=== PATIENT | female | born 2000 | race Caucasian/White ===

== ENCOUNTER 2020-06-26 14:36 | Emergency (ER) | payer OTHER, SELFPAY ==
[2020-06-26 14:57] VITALS: BP 127/100; BP 132/103; PULSE 114; PULSE 133; RESP 22; TEMP 37; O2SAT 100; O2SAT 97; BMI 20.1
[2020-06-26 18:07] VITALS: BP 148/93; PULSE 126; RESP 18; TEMP 36.9; O2SAT 100
[2020-06-26 18:17] LABS: Basophils Percent Auto 0.3 % (0-2); Hematocrit 42.7 % (37-47); Hemoglobin 14.9 g/dl (12.0-16.0); Imm Gran Abs Auto 0.02 X10*3/uL (0.00-0.03); Imm Gran Pct Auto 0.3 % (0.0-0.4); Lymphocytes Absolute Auto 0.5 X10*3/uL (1.2-4.9); Lymphocytes Percent Auto 6.9 % (20-40); MANUAL DIFF FLAG SCAN; Mean Corpuscular HGB Conc 34.9 g/dl (31.0-35.0); Mean Corpuscular Hemoglobin 31.8 pg (27.0-33.0); Monocytes Absolute Auto 0.2 X10*3/uL (0.1-1.2); Monocytes Percent Auto 3.1 % (2-11); Neutrophils Absolute Auto 6.8 X10*3/uL (2.0-8.3); Neutrophils Percent Auto 89.4 % (45-73); Platelet Count 317 X10*3/uL (160-400); Red Blood Count 4.69 X10*6/uL (4.20-5.50); Red Cell Distribution Width 12.8 % (11.0-16.0); SCAN SMEAR FLAG 1; White Blood Count 7.5 X10*3/uL (4.8-10.8)
--- NOTE | 2020-06-26 18:33 | ED_ITS ---
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, this episode today seems to be similar to her as episodes in the past The pain is mostly in the upper abdomen, she cannot drink water without throwing it up, denies fever, denies chills denies burning with urination Related Data Allergies Allergy/AdvReac Type Severity Reaction Status Date / Time haloperidol [From Haldol] Allergy Unknown Verified 06/26/20 14:56 ondansetron [From Zofran] AdvReac Unknown Verified 06/26/20 14:56 Review of Systems Review of Systems Positive for abdominal pain nausea and vomiting negative for fever no chills no chest pain no shortness of breath no diarrhea no dysuria no burning with [place] or frequency of urination no blood in the stool no blood in the vomit no rash no weakness Yes all other systems are reviewed and are negative Physical Exam Vital Signs: Vital Signs: Last Vital Signs Temp 98.5 F 06/26/20 18:07 Pulse 111 H 06/26/20 20:51 Resp 16 06/26/20 20:51 BP 129/88 06/26/20 20:51 Pulse Ox 100 06/26/20 18:07 Body Mass Index 20.1 General appearance is uncomfortable The head is normocephalic atraumatic The pupils are anicteric, no pallor The neck is supple The chest is clear to auscultation bilaterally The heart no murmur auscultated The abdomen had diffuse mild tenderness without rebound or guarding no focal tenderness Extremities no edema, skin no rash Neuro no focal deficit Course Course Course Narrative: 21:30 repeat exam patient has vomited again despite red gland, she says she is allergic to both Zofran and Haldol Repeat abdominal exam remains unchanged with mild generalized tenderness in the abdomen Labs showed a bicarb of 15 and an anion gap of 22 test was negative Case was discussed with attending physician Dr. Mari who advised repeat a L of fluids, try Ativan and Compazine for the nausea, and case was signed out to Dr. Mari at this time and he will re-evaluate , continue care and dispo patient MDM - Abdominal Pain Lab Data Result diagrams: 06/26/20 17:49 06/26/20 17:49 Labs: Lab Results 06/26/20 06/26/20 06/26/20 Range/Units 17:49 17:49 19:57 WBC 7.5 (4.8-10.8) X10*3/uL RBC 4.69 (4.20-5.50) X10*6/uL Hgb 14.9 (12.0-16.0) g/dl Hct 42.7 (37-47) % MCV 91.0 (80-98) fL MCH 31.8 (27.0-33.0) pg MCHC 34.9 (31.0-35.0) g/dl RDW 12.8 (11.0-16.0) % Plt Count 317 (160-400) X10*3/uL MPV 9.0 L (9.4-12.3) fL Immature Gran % (Auto) 0.3 (0.0-0.4) % Neut % (Auto) 89.4 H (45-73) % Lymph % (Auto) 6.9 L (20-40) % [place] % (Auto) 3.1 (2-11) % Eos % (Auto) 0.0 (0-4) % Baso % (Auto) 0.3 (0-2) % Lymph # (Auto) 0.5 L (1.2-4.9) X10*3/uL [place] # (Auto) 0.2 (0.1-1.2) X10*3/uL Eos # (Auto) 0.0 (0.0-0.4) X10*3/uL Baso # (Auto) 0.0 (0.0-0.2) X10*3/uL Abs Immat Gran (auto) 0.02 (0.00-0.03) X10*3/uL Absolute Neuts (auto) 6.8 (2.0-8.3) X10*3/uL Absolute Nucleated RBC 0.000 (0.0-0.012) X10*3/uL Nucleated RBC % (auto) 0.0 (0.0-0.2) /100WBC Smear Tech's Comments VERIFIED Sodium 135 (135-145) mmol/L Potassium 4.4 (3.3-5.1) mmol/L Chloride 102 (96-108) mmol/L Carbon Dioxide 15 L (22-29) mmol/L Anion Gap 22 H (12-20) BUN 16 (9-16) mg/dL Creatinine 0.80 (0.5-1.4) mg/dL Estim Creat Clear Calc 81.2 Estimated GFR > 60 Random Glucose 105 (60-115) mg/dL Calcium 10.2 (8.4-10.2) mg/dL Total Bilirubin 1.0 (0.0-1.0) mg/dL Direct Bilirubin 0.4 (0.0-0.5) mg/dL AST 23 (5-31) U/L ALT 18 (0-31) U/L Alkaline Phosphatase 61 (39-117) U/L Total Protein 8.6 H (6.5-8.0) g/dL Albumin 5.3 H (3.5-5.0) g/dL Lipase 9 (8-78) U/L Beta HCG, Quant < 2 mIU/mL COVID-19 (DEBRA) Negative (Negative) COVID-19 Clin Com See Note PMFSH Past Medical History [facility] Narrative: Episodes of vomiting and stomach pain which have brought her to [facility] Emergency Room multiple times and they have told her 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
[2020-06-26 18:39] LABS: SLIDE REVIEW VERIFIED
[2020-06-26 18:50] LABS: Alanine Aminotransferase 18 U/L (0-31); Albumin Level 5.3 g/dL (3.5-5.0); Alkaline Phosphatase 61 U/L (39-117); Anion Gap 22 (12-20); Aspartate Amino Transferase 23 U/L (5-31); Bilirubin Direct 0.4 mg/dL (0.0-0.5); Blood Urea Nitrogen 16 mg/dL (9-16); Calcium 10.2 mg/dL (8.4-10.2); Carbon Dioxide 15 mmol/L (22-29); Chloride 102 mmol/L (96-108); Creatinine Clr Calc Pharmacy 81.2; Estimated Glomerular Filt Rate > 60; Glucose Random 105 mg/dL (60-115); Lipase 9 U/L (8-78); Potassium 4.4 mmol/L (3.3-5.1); Sodium 135 mmol/L (135-145); Total Protein 8.6 g/dL (6.5-8.0)
[2020-06-26 19:05] LABS: HCG Quantitative < 2 mIU/mL
[2020-06-26] MEDS: Metoclopramide HCl 10 MG/2 ML VIAL IVPUSH (19:10)
[2020-06-26] MEDS: 0.9 % Sodium Chloride 1,000 ML 999 ML IVCONT ×2 (19:10→21:21)
[2020-06-26] MEDS: diphenhydrAMINE HCL 50 MG/ML VIAL 25 MG IVPUSH (19:10)
[2020-06-26] MEDS: Famotidine/PF 20 MG/2 ML VIAL IVPUSH (19:10)
--- NOTE | 2020-06-26 19:14 | PC.NURSE ---
IV established, pt medicated per JUL. Pt actively vomiting in room at this time. Per PA, awaiting paperwork from [facility] to further plan of care. VSS at this time, continue to monitor.
--- NOTE | 2020-06-26 19:59 | PC.NURSE ---
Pt sleeping at this time. nail technician at bedside to obtain Covid swab. Awaiting results.
[2020-06-26 20:20] LABS: COVID-19 Test Negative (Negative)
[2020-06-26 20:22] VITALS: RESP 16
[2020-06-26 20:51] VITALS: BP 129/88; PULSE 111; RESP 16
--- NOTE | 2020-06-26 20:54 | PC.NURSE ---
Pt wakes from sleeping, reports feeling nauseated followed by vomiting. PA aware.
[2020-06-26] MEDS: Prochlorperazine Edisylate 10 MG/2 ML VIAL IVPUSH (21:21)
[2020-06-26] MEDS: LORazepam 2 MG/ML VIAL 1 MG IVPUSH (21:21)
--- NOTE | 2020-06-26 21:23 | PC.NURSE ---
Pt medicated per JUL. Urine obtained and sent. Pt resting in bed at this time, call bourgeois within reach.
[2020-06-26 21:41] LABS: Glucose Urine UA NEG (NEG); Leukocyte Esterase Urine NEG (NEG); Nitrite Urine NEG (NEG); Specific Gravity - Urine >= 1.030 (1.005-1.025); Urine Blood NEG (NEG); Urine Ketones >=80 MG/DL (NEG); Urine Protein TRACE MG/DL (NEG-TRACE)
[2020-06-26 21:47] LABS: Appearance Urine CLEAR; Color Urine YELLOW
[2020-06-26 21:48] LABS: Urine Pregnancy NEGATIVE (NEGATIVE)
[2020-06-26 21:49] LABS: UPreg QC Valid YES
[2020-06-26 22:11] VITALS: BP 129/89; PULSE 116; RESP 18; O2SAT 100
--- NOTE | 2020-06-26 22:39 | PC.NURSE ---
This RN entering room to take down pts IVFs. Pt found sitting upright on the edge of the bed, pt states I'm sorry, I had to go, I peed on the floor. Pt previously ambulating to the bathroom without difficulty. Pt states I was hooked up to the fluids and I really had to go!
--- NOTE | 2020-06-26 22:50 | PC.NURSE ---
MD at bedside discussing plan to DC home.
== END 2020-06-26 23:08 | disposition home or self-care (01) ==
PROVIDERS: Physician Assistant Medical; Emergency Provider Internal Medicine; PCP Pediatrics Adolescent Medicine
DX: R11.15 Cyclical vomiting syndrome unrelated to migraine (principal); F12.90 Cannabis use, unspecified, uncomplicated; Z20.822 Contact with and (suspected) exposure to COVID-19
CPT/HCPCS: 36415; 80048; 80076; 81003; 81025; 83690; 84702; 85025; 87635; 96361; 96374; 96375; 99284; 99285; J1200; J2060; J2765

== ENCOUNTER 2021-05-10 12:11 | Emergency (ER) | payer OTHER, SELFPAY ==
[2021-05-10 13:28] VITALS: BP 112/74; PULSE 128; RESP 16; TEMP 36.8; O2SAT 100; BMI 23.5
[2021-05-10 13:44] LABS: COVID-19 Test Negative (Negative); IDNOW Serial# 08D9AD1C
[2021-05-10 14:28] VITALS: BP 110/68; PULSE 101; RESP 16; TEMP 36.8; O2SAT 99
--- NOTE | 2021-05-10 14:38 | ED.GENADULT ---
HPI - General Adult General Chief complaint: General Medical Stated complaint: vomiting/fever/cough Time Seen by Provider: 05/10/21 14:38 History of Present Illness HPI narrative: Patient with vomiting which started this morning similar to frequent prior episodes of vomiting which may be from cannabis hyper emesis She has had no fever no chills no abdominal pain no diarrhea and feels exactly the same as in the other episodes which did respond to Reglan, she can hold down little bits of water but mostly vomits even when she drinks water Related Data Previous Rx's Medication Instructions Recorded lorazepam 1 mg tablet (Ativan) 1 mg PO BEDTIME PRN #10 tab 06/26/20 metoclopramide HCl 10 mg tablet 10 mg PO Q6H PRN #10 tab 05/10/21 (Reglan) Allergies Allergy/AdvReac Type Severity Reaction Status Date / Time haloperidol [From Haldol] Allergy Unknown Verified 05/10/21 13:27 ondansetron [From Zofran] AdvReac Unknown Verified 05/10/21 13:27 Review of Systems Review of Systems: Positive for vomiting Negatives are no fever no chills no dizziness no weakness no fainting no feeling faint no headache no stiff neck no chest pain no shortness of breath no abdominal pain no diarrhea no skin rash Yes all other systems are reviewed and are negative [facility] Past Medical History [facility] Narrative: Prior episodes of vomiting related to marijuana use, she has slacked down on her marijuana use but still uses occasionally and has used recently Source: nursing notes reviewed Medical History (Updated 05/11/21 @ 00:01 by Background Daemon) Gastritis Social History Social History Alcohol intake: never Advance Directives: No Advance Directives Information Provided: No Patient : No Physical Exam Vital Signs: Vital Signs: Last Vital Signs Temp 98.2 F 05/10/21 14:28 Pulse 101 H 05/10/21 14:28 Resp 16 05/10/21 14:28 BP 110/68 05/10/21 14:28 Pulse Ox 99 05/10/21 14:28 BMI result Body Mass Index 23.5 General appearance no acute distress, the patient is comfortable appearing The eyes no redness or discharge The pharynx mucous membranes are slightly dry, no redness swelling or exudate Neck is supple Chest is clear to auscultation bilateral Heart no murmur Abdomen soft nontender Extremities no edema full range of motion x4 Course Course Course Narrative: Patient was hydrated and had dramatic improvement after Reglan and was able to drink rosangela fransisca and water with no nausea test was negative no significant abnormalities and patient was discharged asymptomatic and very improved Medical Decision Making Lab Data Lab results reviewed: Yes I reviewed the patient's lab results. Result diagrams: 05/10/21 15:04 05/10/21 15:04 Labs: Lab Results 05/10/21 05/10/21 05/10/21 Range/Units 13:10 15:04 15:04 WBC 7.4 (4.8-10.8) X10*3/uL RBC 4.64 (4.20-5.50) X10*6/uL Hgb 15.0 (12.0-16.0) g/dl Hct 41.4 (37.0-47.0) % MCV 89.2 (80.0-98.0) fL MCH 32.3 (27.0-33.0) pg MCHC 36.2 H (31.0-35.0) g/dl RDW 12.3 (11.0-16.0) % Plt Count 367 (160-400) X10*3/uL MPV 8.6 L (9.4-12.3) fL Immature Gran % (Auto) 0.3 (0.0-0.4) % Neut % (Auto) 70.9 (45-73) % Lymph % (Auto) 18.2 L (20-40) % [place] % (Auto) 10.4 (2-11) % Eos % (Auto) 0.1 (0-4) % Baso % (Auto) 0.1 (0-2) % Lymph # (Auto) 1.4 (1.2-4.9) X10*3/uL [place] # (Auto) 0.8 (0.1-1.2) X10*3/uL Eos # (Auto) 0.0 (0.0-0.4) X10*3/uL Baso # (Auto) 0.0 (0.0-0.2) X10*3/uL Abs Immat Gran (auto) 0.02 (0.00-0.03) X10*3/uL Absolute Neuts (auto) 5.3 (2.0-8.3) x10*3/uL Absolute Nucleated RBC 0.000 (0.0-0.012) X10*3/uL Nucleated RBC % (auto) 0.0 (0.0-0.2) /100WBC Sodium 130 L (135-145) mmol/L Potassium 3.3 D (3.3-5.1) mmol/L Chloride 87 L (96-108) mmol/L Carbon Dioxide 28 (22-29) mmol/L Anion Gap 18 (12-20) BUN 13 (9-16) mg/dL Creatinine 0.78 (0.5-1.4) mg/dL Estim Creat Clear Calc 89.3 Estimated GFR > 60 Random Glucose 77 (60-115) mg/dL Calcium 9.9 (8.4-10.2) mg/dL Total Bilirubin 1.0 (0.0-1.0) mg/dL Direct Bilirubin 0.4 (0.0-0.5) mg/dL AST 16 (5-31) U/L ALT 14 (0-31) U/L Alkaline Phosphatase 62 (39-117) U/L Total Protein 8.1 H (6.5-8.0) g/dL Albumin 5.0 (3.5-5.0) g/dL Lipase 15 (8-78) U/L Urine Test (NEGATIVE) COVID-19 (DEBRA) Negative (Negative) COVID-19 Clin Com See Note 05/10/21 Range/Units 16:49 WBC (4.8-10.8) X10*3/uL RBC (4.20-5.50) X10*6/uL Hgb (12.0-16.0) g/dl Hct (37.0-47.0) % MCV (80.0-98.0) fL MCH (27.0-33.0) pg MCHC (31.0-35.0) g/dl RDW (11.0-16.0) % Plt Count (160-400) X10*3/uL MPV (9.4-12.3) fL Immature Gran % (Auto) (0.0-0.4) % Neut % (Auto) (45-73) % Lymph % (Auto) (20-40) % [place] % (Auto) (2-11) % Eos % (Auto) (0-4) % Baso % (Auto) (0-2) % Lymph # (Auto) (1.2-4.9) X10*3/uL [place] # (Auto) (0.1-1.2) X10*3/uL Eos # (Auto) (0.0-0.4) X10*3/uL Baso # (Auto) (0.0-0.2) X10*3/uL Abs Immat Gran (auto) (0.00-0.03) X10*3/uL Absolute Neuts (auto) (2.0-8.3) x10*3/uL Absolute Nucleated RBC (0.0-0.012) X10*3/uL Nucleated RBC % (auto) (0.0-0.2) /100WBC Sodium (135-145) mmol/L Potassium (3.3-5.1) mmol/L Chloride (96-108) mmol/L Carbon Dioxide (22-29) mmol/L Anion Gap (12-20) BUN (9-16) mg/dL Creatinine (0.5-1.4) mg/dL Estim Creat Clear Calc Estimated GFR Random Glucose (60-115) mg/dL Calcium (8.4-10.2) mg/dL Total Bilirubin (0.0-1.0) mg/dL Direct Bilirubin (0.0-0.5) mg/dL AST (5-31) U/L ALT (0-31) U/L Alkaline Phosphatase (39-117) U/L Total Protein (6.5-8.0) g/dL Albumin (3.5-5.0) g/dL Lipase (8-78) U/L Urine Test NEGATIVE (NEGATIVE) COVID-19 (DEBRA) (Negative) COVID-19 Clin Com Discharge Plan Discharge Clinical Impression: Vomiting Patient Disposition: Home, Self-Care Additional Instructions: Your vomiting may be from marijuana use 0 try to stop using marijuana I wrote you for Tam which worked here in the emergency room to control the vomiting Drink plenty of fluids Return any time if worse test was negative and no serious abnormality was shown on lab work Prescriptions: New metoclopramide HCl [Reglan] 10 mg tablet 10 mg PO Q6H PRN (Reason: nausea and vomiting) Qty: 10 RF: 0 No Action lorazepam [Ativan] 1 mg tablet 1 mg PO BEDTIME PRN (Reason: anxiety) Qty: 10 RF: 0 Stand Alone Forms: Work/School Release Interventions: ED Discharge Assessment Last Done: 05/10/21 17:10 Discharge Date/Time: 05/10/21 17:11
[2021-05-10 15:08] LABS: MANUAL DIFF FLAG NO
[2021-05-10] MEDS: Metoclopramide HCl 10 MG/2 ML VIAL IVPUSH (15:10)
[2021-05-10] MEDS: 0.9 % Sodium Chloride 1,000 ML 999 ML IV (15:10)
[2021-05-10 15:15] LABS: Basophils Percent Auto 0.1 % (0-2); Eosinophils Percent Auto 0.1 % (0-4); Hematocrit 41.4 % (37.0-47.0); Imm Gran Abs Auto 0.02 X10*3/uL (0.00-0.03); Imm Gran Pct Auto 0.3 % (0.0-0.4); Lymphocytes Absolute Auto 1.4 X10*3/uL (1.2-4.9); Lymphocytes Percent Auto 18.2 % (20-40); Mean Corpuscular HGB Conc 36.2 g/dl (31.0-35.0); Mean Corpuscular Hemoglobin 32.3 pg (27.0-33.0); Mean Corpuscular Volume 89.2 fL (80.0-98.0); Mean Platelet Volume 8.6 fL (9.4-12.3); Monocytes Absolute Auto 0.8 X10*3/uL (0.1-1.2); Monocytes Percent Auto 10.4 % (2-11); Neutrophils Absolute Auto 5.3 x10*3/uL (2.0-8.3); Neutrophils Percent Auto 70.9 % (45-73); Platelet Count 367 X10*3/uL (160-400); Red Blood Count 4.64 X10*6/uL (4.20-5.50); Red Cell Distribution Width 12.3 % (11.0-16.0); White Blood Count 7.4 X10*3/uL (4.8-10.8)
[2021-05-10 15:25] LABS: Alanine Aminotransferase 14 U/L (0-31); Alkaline Phosphatase 62 U/L (39-117); Anion Gap 18 (12-20); Aspartate Amino Transferase 16 U/L (5-31); Bilirubin Direct 0.4 mg/dL (0.0-0.5); Blood Urea Nitrogen 13 mg/dL (9-16); Calcium 9.9 mg/dL (8.4-10.2); Carbon Dioxide 28 mmol/L (22-29); Chloride 87 mmol/L (96-108); Creatinine Clr Calc Pharmacy 89.3; Estimated Glomerular Filt Rate > 60; Glucose Random 77 mg/dL (60-115); Lipase 15 U/L (8-78); Potassium 3.3 mmol/L (3.3-5.1); Sodium 130 mmol/L (135-145); Total Protein 8.1 g/dL (6.5-8.0)
[2021-05-10 16:59] LABS: UPreg QC Valid YES; Urine Pregnancy NEGATIVE (NEGATIVE)
== END 2021-05-10 17:11 | disposition home or self-care (01) ==
PROVIDERS: Physician Assistant Medical; Emergency Provider Emergency Medicine Emergency Medical Services; PCP Pediatrics Adolescent Medicine
DX: R11.10 Vomiting, unspecified (principal); Z20.822 Contact with and (suspected) exposure to COVID-19; F12.90 Cannabis use, unspecified, uncomplicated
CPT/HCPCS: 36415; 80048; 80076; 81025; 83690; 85025; 87635; 96361; 96374; 99283; 99284; J2765